=== PATIENT | male | born 1970 | race Caucasian/White ===

== ENCOUNTER 2024-08-24 11:20 | Outpatient (CLI) | payer BC ==
[2024-08-24 11:52] LABS: Hematocrit 48.1 % (38.8-50.0); Hemoglobin 17.3 g/dL (13.5-17.5); Mean Corpuscular Hemoglobin 33.7 pg (27.0-33.0); Mean Corpuscular Volume 93.8 fL (81.2-95.1); Mean Platelet Volume 9.3 fL (7.4-10.4); Platelet Count 226 10x3/uL (150-450); RBC Distribution Width 12.4 % (11.5-14.5); Red Blood Cell (RBC) Count 5.13 10x6/uL (4.32-5.72); White Blood Cell (WBC) Count 8.33 10x3/uL (3.5-10.5)
[2024-08-24 12:32] LABS: Anion Gap 13 mmol/L (10-20); BUN (Urea Nitrogen) 11 mg/dL (8.4-25.7); Calc. Creatinine Clearance 0 mL/min (70-130); Carbon Dioxide 23 mmol/L (22-29); Chloride 108 mmol/L (98-107); Estimated GFR 71; Glucose 115 mg/dL (70-105); Potassium 4.3 mmol/L (3.5-5.1); Sodium 140 mmol/L (136-145)
== END 2024-08-24 11:21 | disposition home or self-care (01) ==
LOC: CSHLAB 11:20
PROVIDERS: ATTEND Specialist
DX: Z01.812 Encounter for preprocedural laboratory examination (principal); I48.91 Unspecified atrial fibrillation
CPT/HCPCS: 80048; 85027

== ENCOUNTER 2024-09-01 11:00 | Day surgery (SDC) | payer BC ==
[2024-09-01 11:28] VITALS: BP 124/85; TEMP 98.2
[2024-09-01] MEDS ORDERED: PROPOFOL 20 ML ONE (12:21)
== END 2024-09-01 13:11 | disposition home or self-care (01) ==
LOC: CSHSDC 11:00
PROVIDERS: ATTEND Specialist
PROC: 5A2204Z Restoration of Cardiac Rhythm, Single (ICD-10-PCS; principal; 2024-09-01)
DX: R00.2 Palpitations (principal); R00.1 Bradycardia, unspecified; I48.0 Paroxysmal atrial fibrillation; I87.2 Venous insufficiency (chronic) (peripheral); E66.01 Morbid (severe) obesity due to excess calories; G47.33 Obstructive sleep apnea (adult) (pediatric); M35.00 Sjogren syndrome, unspecified; Z88.8 Allergy status to other drugs, medicaments and biological substances; Z79.01 Long term (current) use of anticoagulants; Z79.899 Other long term (current) drug therapy
CPT/HCPCS: 92960; J2704

== ENCOUNTER → 2025-07-19 | Day surgery (SDC) | payer BC ==
[~2025-07-19] MED LIST: PROPOFOL 20 ML ONE
[2025-07-19 08:53] VITALS: BP 113/77; TEMP 97.7
== END ==
LOC: CSHSDC 08:10
PROVIDERS: ATTEND Specialist
PROC: 5A2204Z Restoration of Cardiac Rhythm, Single (ICD-10-PCS; principal; 2025-07-19)
DX: I48.19 Other persistent atrial fibrillation (principal); G47.30 Sleep apnea, unspecified
CPT/HCPCS: 92960; 93005; 93010; J2704